=== PATIENT | female | born 1980 ===

== ENCOUNTER 2023-08-08 14:33 | Outpatient (OUT) | payer OTHER, SELFPAY ==
--- NOTE | 2023-08-08 | XR_ITS ---
The [address] [address] Patient Name: EVELYNE TOMPKINS MRN: [id number] date: 1980 Sex: F Assigned Patient Location: Current Patient Location: Accession/Order Number: [id number] Exam Date: 08/08/2023 15:04 Report Date: 08/10/2023 08:50 At the request of: TANISHA WETZEL Procedure: XR foot LT min 3V PROCEDURE: XR foot LT min 3V HISTORY: LEFT FOOT PAIN COMPARISON: None. FINDINGS: BONES:No fracture, dislocation, bone lesion. Mild degenerative changes of the second third tarsal-metatarsal joints. Persistent flexion of the second toe; hammer toe syndrome? Small separate ossification dorsal to the talonavicular joint favoring sequela of remote injury. SOFT TISSUES:No visible soft tissue swelling. EFFUSION:None visible. OTHER: Negative. XR/XR foot LT min 3V IMPRESSION: 1. No acute bone abnormality. 2. Mild degenerative changes detailed above. Electronically authenticated by: ZENON HILTON Date: 08/10/2023 08:50
== END 2023-08-08 14:34 | disposition home or self-care (01) ==
LOC: EC 14:35
PROVIDERS: Visit Provider Physician Assistant
DX: M79.672 Pain in left foot (principal)
CPT/HCPCS: 73630